=== PATIENT | female | born 1960 | race Caucasian/White ===

== ENCOUNTER 2016-11-20 09:46 | Emergency (ER) | payer BC, OTHER ==
[2016-11-20 10:00] VITALS: BP 155/84
--- NOTE | 2016-11-20 10:43 | XRAY Preliminary Report ---
Exam: XR Ankle 3 View RT IMPRESSION: 1. Small nodular calcification distal to the medial malleolus for which a small evulsion fracture fra gment is not excluded. 2. Otherwise, no acute abnormality. 3. Mild medial tibiotalar joint degenerative disease. [facility] SITE ID: [id number]
--- NOTE | 2016-11-20 10:45 | XRAY Report ---
EXAM: RIGHT ANKLE RADIOGRAPHY EXAM DATE: 11/20/2016 10:15 AM. CLINICAL HISTORY: Pain. Fell off step last night. Medial ankle pain. COMPARISON: None. TECHNIQUE: 3 views. FINDINGS: Bones: Small nodular calcific density along the lateral margin of the talus or calcaneus, below the l evel of the tip of the medial malleolus could represent an incidental chronic finding but a small avu lsion fracture fragment is not excluded. Clinical correlation for site of symptoms is recommended. No other evidence of fracture or bone lesion. Joints: Mild medial tibiotalar joint degenerative disease. No subluxation. No gross joint effusion. Soft Tissues: Normal. No soft tissue swelling. IMPRESSION: 1. Small nodular calcification distal to the medial malleolus for which a small evulsion fracture fra gment is not excluded. 2. Otherwise, no acute abnormality. 3. Mild medial tibiotalar joint degenerative disease. [facility] Referring Provider Line: [phone] SITE ID: [id number]
--- NOTE | 2016-11-20 11:08 | ED Physician Documentation ---
PD HPI LOWER EXT INJURY - Stated complaint Stated Complaint: RT FT INJURY - Chief complaint Chief Complaint: Ext Problem - History obtained from History obtained from: Patient, Family - History of Present Illness PD HPI LOW EXT INJURY LOCATION: Right, Ankle Type of injury: Twist Where injury occurred: Home Timing - onset: Last night Timing - duration: Hours Timing - details: Abrupt onset, Still present Improved by: Rest, Ice, Immobilization Worsened by: Moving, Palpating Associated symptoms: Swelling. No: Weakness, Numbness Contributing factors: No: Anticoagulated Similar symptoms before: Has not had sx before Recently seen: Not recently seen - Additional information Additional information: 56-year-old female was going down some stairs yesterday when she twisted her ankle she has pain and swelling on the lateral aspect of the ankle she is able to bear some weight and is hobbling in to the emergency department today. Review of Systems Constitutional: denies: Fever Respiratory: denies: Cough GI: denies: Vomiting Musculoskeletal: reports: Extremity pain, Extremity swelling, Joint swelling, Pain with weight bearing. denies: Neck pain, Back pain Neurologic: denies: Generalized weakness, Focal weakness, Numbness PD PAST MEDICAL HISTORY - Present Medications Home Medications: Ambulatory Orders Medication Instructions Recorded Confirmed No Known Home Medications [No 11/20/16 11/20/16 Known Home Medications] - Allergies Allergies/Adverse Reactions: Allergies Allergy/AdvReac Type Severity Reaction Status Date / Time No Known Drug Allergies Allergy Verified 11/20/16 09:59 PD ED PE NORMAL - Vitals Vital signs reviewed: Yes (Hypertension) - General General: No acute distress, Well developed/nourished - HEENT HEENT: Atraumatic, PERRL - Respiratory Respiratory: No respiratory distress - Derm Derm: Normal color, Warm and dry, No rash - Extremities Extremities: No deformity, Other (There is swelling and point tenderness to the lateral malleolus and over the talofibular ligament. The distal N/v is intact and there is no tendernss to the proximal 5th. ) - Neuro Neuro: No motor deficit, No sensory deficit - Psych Psych: Normal mood, Normal affect Results - Vitals Vitals: Vital Signs - 24 hr 11/20/16 09:55 Temperature 36.6 C Heart Rate 73 Respiratory 16 Rate Blood Pressure 155/84 H O2 Saturation 98 Oxygen O2 Source Room air - Rads (name of study) Right ankle Radiology: Prelim report reviewed (Impression: 1. Small nodular calcification distal to the medial malleolus for which a small avulsion fracture fragment is not excluded.2. Otherwise, no acute abnormality.3. Mild medial tibiotalar joint degenerative disease.) Procedures - Splint (location) right ankle Splint applied by: Tech Type of splint: Ankle airsplint Other: Patient tolerated well, No complications, Neurovascular intact, Good alignment PD MEDICAL DECISION MAKING - ED course Complexity details: reviewed results, re-evaluated patient, considered differential, d/w patient, d/w family ED course: 56-year-old female with an ankle sprain appears to be tolerating this well and is able to bear some weight she is placed into an air stirrup and instructed to wear 24 7 for 2 weeks. Departure - Departure Disposition: 01 Home, Self Care Clinical Impression: Ankle sprain Qualifiers: Encounter type: initial encounter Involved ligament of ankle: calcaneofibular ligament Laterality: right Qualified Code(s): S93.411A - Sprain of calcaneofibular ligament of right ankle, initial encounter Condition: Stable Instructions: ED Sprain Ankle W X Ray Follow-Up: Lanie Saucedo PA [Primary Care Provider] -
== END 2016-11-20 11:29 | disposition home or self-care (01) ==
LOC: ED 09:46
DX: S93.411A Sprain of calcaneofibular ligament of right ankle, initial encounter (principal); X50.0XXA Overexertion from strenuous movement or load, initial encounter; Y92.019 Unspecified place in single-family (private) house as the place of occurrence of the external cause
CPT/HCPCS: 99283

== ENCOUNTER 2019-08-02 10:52 | Outpatient (CLI) | payer OTHER | END 2019-08-02 10:53 | disposition EMS.NT | LOC: EMS 10:52 | PROVIDERS: ATTEND Surgery | DX: R07.89 Other chest pain (principal) ==

== ENCOUNTER 2019-08-02 11:43 | Emergency (ER) | payer BC, OTHER ==
[2019-08-02 12:27] LABS: BASOPHILS % (AUTO) 0.4 %; EOSINOPHILS % (AUTO) 0.3 %; HGB - HEMOGLOBIN 14.7 g/dL (12.0-16.0); LYMPHOCYTES # (AUTO) 1.4 10^3/uL (1.5-3.5); LYMPHOCYTES % (AUTO) 19.6 %; MEAN CORPUSCULAR HEMOGLOBIN 31.5 pg (27.0-31.0); MEAN CORPUSCULAR HGB CONC 34.6 g/dL (32.0-36.0); MEAN PLATELET VOLUME 9.8 fL (7.9-10.8); MONOCYTES # (AUTO) 0.7 10^3/uL (0.0-1.0); MONOCYTES % (AUTO) 9.6 %; NEUTROPHILS # (AUTO) 4.9 10^3/uL (1.5-6.6); NEUTROPHILS % (AUTO) 69.8 %; PLT - PLATELET COUNT 228 10^3/uL (130-450); RED BLOOD COUNT 4.67 10^6/uL (4.20-5.40); RED CELL DISTRIBUTION WIDTH 12.3 % (12.0-15.0)
[2019-08-02 12:37] LABS: ALBUMIN 4.2 g/dL (3.2-5.5); ALBUMIN/GLOBULIN RATIO 1.4 (1.0-2.2); BILIRUBIN,TOTAL 0.6 mg/dL (0.2-1.0); CALCIUM 8.8 mg/dL (8.5-10.3); CREATININE 0.8 mg/dL (0.4-1.0); TOTAL PROTEIN 7.1 g/dL (6.7-8.2)
--- NOTE | 2019-08-02 12:38 | XRAY Report ---
Reason: Chest pain Procedure Date: 08/02/2019 Accession Number: [id number] / [id number] Procedure: XR - Chest 1 View X-Ray CPT Code: 81674 Final Report FULL RESULT: EXAM: CHEST RADIOGRAPHY EXAM DATE: 08/02/2019 12:17 PM. CLINICAL HISTORY: Chest pain and dyspnea. COMPARISON: None. TECHNIQUE: 1 view. FINDINGS: Lungs/Pleura: No focal opacities evident. No pleural effusion. No pneumothorax. Mediastinum: Within exam limitations, the cardiomediastinal contour is normal. Other: None. IMPRESSION: Normal single view chest. [facility]
--- NOTE | 2019-08-02 12:53 | ED Physician Documentation ---
PD HPI CHEST PAIN - Stated complaint Stated Complaint: CP/HIGH BP - Chief complaint Chief Complaint: Cardiac - History obtained from History obtained from: Patient - History of Present Illness Timing - onset: How many days ago (several days to a week of intermittent chest discomfort, not exertional, associated with feeling of chest tightness and some lightheaded. No near syncope. Did not take BP nor HR, but did have feeling of pressure in face/head with the episodes, so felt BP was up.) Timing - onset during: Light activity. No: Rest, Exertion Timing - duration: Minutes Timing - details: Abrupt onset (lasts few minutes up to about 30 minutes last evening (longest episode).), Intermittant Quality: Pressure, Tightness Location: Substernal, Left chest Improved by: No: Rest Worsened by: No: Exertion Associated symptoms: Shortness of air, Feeling faint / dizzy. No: Diaphoresis, Nausea, Palpitations Similar symptoms before: Has not had sx before Recently seen: Not recently seen Review of Systems Constitutional: denies: Fever Nose: denies: Rhinorrhea / runny nose, Congestion Throat: denies: Sore throat Cardiac: denies: Palpitations, Pedal edema, Calf pain Respiratory: denies: Cough GI: denies: Abdominal Pain, Nausea, Vomiting Neurologic: reports: Generalized weakness (during the episodes). denies: Near syncope Endocrine: reports: Other (2 cups coffee daily) PD PAST MEDICAL HISTORY - Past Medical History Past Medical History: No Cardiovascular: None Respiratory: None Neuro: None Endocrine/Autoimmune: None GI: None COUTURIERE: None : None HEENT: None Psych: None Musculoskeletal: None Derm: None - Past Surgical History Past Surgical History: No - Present Medications Home Medications: Ambulatory Orders Medication Instructions Recorded Confirmed Losartan Potassium 50 mg PO DAILY #30 tablet 08/02/19 - Allergies Allergies/Adverse Reactions: Allergies Allergy/AdvReac Type Severity Reaction Status Date / Time No Known Drug Allergies Allergy Verified 08/02/19 11:52 - Social History Does the pt smoke?: No Smoking Status: Never smoker - POLST Patient has POLST: No PD ED PE NORMAL - Vitals Vital signs reviewed: Yes - General General: Alert and oriented X 3, No acute distress, Well developed/nourished - HEENT HEENT: Pharynx benign - Neck Neck: Supple, no meningeal sign, No adenopathy, Thyroid normal - Cardiac Cardiac: RRR, No murmur - Respiratory Respiratory: Clear bilaterally - Abdomen Abdomen: Soft, Non tender - Back Back: No CVA TTP - Derm Derm: Normal color, Warm and dry - Extremities Extremities: No tenderness to palpate, Normal ROM s pain - Neuro Neuro: Alert and oriented X 3, No motor deficit, Normal speech Results - Vitals Vitals: Vital Signs - 24 hr 08/02/19 08/02/19 08/02/19 11:46 12:26 13:40 Temperature 37.0 C 36.7 C Heart Rate 89 94 90 Respiratory 20 12 14 Rate Blood Pressure 156/103 H 184/97 H 140/74 H O2 Saturation 98 95 97 Oxygen O2 Source Room air - EKG (time done) 11:49 Rate: Rate (enter#) (91) Rhythm: NSR [place]: Normal Intervals: Normal [place] QRS: Normal, Poor R wave progression Ischemia: Normal ST segments. No: ST elevation c/w ischemia, ST depression - Labs Labs: Laboratory Tests 08/02/19 08/02/19 08/02/19 12:19 12:19 12:19 WBC 7.0 RBC 4.67 Hgb 14.7 Hct 42.5 MCV 91.0 MCH 31.5 H MCHC 34.6 RDW 12.3 Plt Count 228 MPV 9.8 Neut # (Auto) 4.9 Lymph # (Auto) 1.4 L [place] # (Auto) 0.7 Eos # (Auto) 0.0 Baso # (Auto) 0.0 Absolute Nucleated RBC 0.00 Nucleated RBC % 0.0 Sodium 138 Potassium 3.9 Chloride 104 Carbon Dioxide 25 Anion Gap 9.0 BUN 18 Creatinine 0.8 Estimated GFR (MDRD) 74 L Glucose 99 Calcium 8.8 Magnesium Total Bilirubin 0.6 AST 23 ALT 38 Alkaline Phosphatase 77 Troponin I High Sens 2.4 B-Natriuretic Peptide Total Protein 7.1 Albumin 4.2 Globulin 2.9 Albumin/Globulin Ratio 1.4 Lipase 26 TSH 08/02/19 08/02/19 08/02/19 12:19 12:19 12:19 WBC RBC Hgb Hct MCV MCH MCHC RDW Plt Count MPV Neut # (Auto) Lymph # (Auto) [place] # (Auto) Eos # (Auto) Baso # (Auto) Absolute Nucleated RBC Nucleated RBC % Sodium Potassium Chloride Carbon Dioxide Anion Gap BUN Creatinine Estimated GFR (MDRD) Glucose Calcium Magnesium 2.1 Total Bilirubin AST ALT Alkaline Phosphatase Troponin I High Sens B-Natriuretic Peptide 16 Total Protein Albumin Globulin Albumin/Globulin Ratio Lipase TSH 1.48 - Rads (name of study) chest xray Radiology: Prelim report reviewed (no acue process), See rad report PD MEDICAL DECISION MAKING - ED course Complexity details: considered differential (has had feeling of chest discomfort intermittently, not exertional, and randomly during the day. Consider possible arrhythmias intermittently. Or may relate to BP spikes, though less likely. Could be anxiety or such, but not seeming the right pattern. ), d/w patient Departure - Departure Disposition: 01 Home, Self Care Clinical Impression: Intermittent chest pain, Elevated blood pressure reading Condition: Stable Record reviewed to determine appropriate education?: Yes Instructions: ED Chest Pain Atypical Unkn Cause, ED Hypertension Poss Follow-Up: [facility] [Provider Group] [facility] [Provider Group] Prescriptions: Losartan Potassium 50 mg PO DAILY #30 tablet Comments: Stay well-hydrated. Minimal coffee and caffeine. Have some mild daily exercise such as a walk for 20 minutes or so (at least 3-4 times a week). Start checking your blood pressure once or twice daily over the next week and see if it remains consistently a bit elevated or more often elevated. If so then start the losartan low-dose blood pressure medicine. Also call and try to set up new provider. I gave a reference to a couple of clinics in [place]. If you continue with these episodes, they would likely set you up with a recording heart monitor that records for 3 to 7-day. To see if any of these episodes relate to an abnormal heart rhythm. Return to the ER if consistent symptoms or other problems develop. Discharge Date/Time: 08/02/19 13:48
[2019-08-02 13:48] VITALS: BP 140/74
== END 2019-08-02 13:48 | disposition home or self-care (01) ==
LOC: ED 11:43
DX: R07.9 Chest pain, unspecified (principal); R03.0 Elevated blood-pressure reading, without diagnosis of hypertension
CPT/HCPCS: 36415; 71045; 80053; 83690; 83735; 83880; 84443; 84484; 85025; 93005; 99284

== ENCOUNTER 2022-09-09 15:15 | Outpatient (CLI) | payer OTHER ==
--- NOTE | 2022-09-11 10:18 | Mammography Report ---
BILATERAL DIGITAL SCREENING MAMMOGRAM 3D/2D: 09/09/2022 CLINICAL: Routine screening. Comparison is made to exam dated: 07/23/2009 mammogram - [facility]. Both breasts are almost entirely fatty (category a/<25% glandular tissue). No significant masses, calcifications, or other findings are seen in either breast. There has been no significant interval change. IMPRESSION: NEGATIVE There is no mammographic evidence of malignancy. A 1 year screening mammogram is recommended. Based on the Tyrer Cuzick model (a risk assessment model) the patients lifetime risk is 4.9% and her 10 year risk is 2.0%. According to the ACR, ACS, and NCCN guidelines, an annual breast MRI exam cira g with mammogram is recommended if the patients lifetime risk is 20% or greater. This exam was interpreted at Station ID: [id number]. NOTE: For mammograms, a report in lay terms will be sent to the patient. Approximately 15% of breast malignancies will not be visualized mammographically. In the management of a palpable breast mass, a negative mammogram must not discourage biopsy of a clinically suspicious lesion. Electronically Signed By: Federica [email or web address]/[email or web address]:09/10/2022 10:11:18 letter sent: No_Letter ACR BI-RADS Category 1: Negative 3341F PARENCHYMAL PATTERN: (F) - The breast(s) demonstrate(s) diffuse fatty replacement. BI-RADS CATEGORY: (1) - 1 Mammogram [id number] 1 year screening LATERALITY: (B)
== END 2022-09-09 15:16 | disposition home or self-care (01) ==
LOC: DI.S 15:15
DX: Z12.31 Encounter for screening mammogram for malignant neoplasm of breast (principal)